=== PATIENT | male | born 1945 | race Caucasian/White ===

== ENCOUNTER 2018-06-01 11:21 | Emergency (ER) | payer MEDICARE ==
[~2018-06-01] VITALS: Ht 188 cm; Wt 97.5 kg
[~2018-06-01 11:21] MED LIST: AMLO5 PO; ASPI81EC PO; CEFP200 PO; DOCU100 PO; DOXA1; ESCI5; FEXO180 PO; HYDACE5 PO; HYDACE5325 PO; INSULANI SC; ISOMON20 PO; LEVEMIR FL100 UNIT/1 SC; LISI5 PO; METF850 PO; METO100 PO; METO50 PO; PIOG45 PO; ROSU10TA PO; SITA100T2 PO; SITA25T2
[2018-06-01 12:54] LABS: BASOPHILS ABSOLUTE AUTO 0.05 K/mm3 (0.00-0.23); BASOPHILS PERCENT AUTO 1 % (0-2); EOSINOPHILS ABSOLUTE AUTO 0.11 K/mm3 (0.00-0.68); EOSINOPHILS PERCENT AUTO 2 % (0-6); Hematocrit 41.3 % (37.0-53.0); Hemoglobin 14.4 g/dL (13.5-17.5); IMMATURE GRAN ABSOLUTE AUTO 0.02 K/mm3 (0.00-0.10); IMMATURE GRAN PERCENT AUTO 0 % (0-1); LYMPHOCYTES ABSOLUTE AUTO 1.98 K/mm3 (0.84-5.20); LYMPHOCYTES PERCENT AUTO 31 % (21-46); MONOCYTES ABSOLUTE AUTO 0.59 K/mm3 (0.16-1.47); MONOCYTES PERCENT AUTO 9 % (4-13); Mean Corpuscular HGB 30.1 pg (26.0-34.0); Mean Corpuscular HGB Conc 34.9 g/dL (31.5-36.5); Mean Corpuscular Volume 86 fL (80-100); Mean Platelet Volume 9.5 fL (9.1-12.4); NEUTROPHILS PERCENT AUTO 57 % (41-73); Platelet Count 227 K/mm3 (150-400); RDW Coefficient Variation 12.3 % (11.7-14.2); RDW Standard Deviation 39.1 fL (35.1-46.3); Red Blood Cell Count 4.79 M/mm3 (4.30-5.90); White Blood Cell Count 6.35 K/mm3 (4.00-11.30)
[2018-06-01 13:09] LABS: Alanine Aminotransfer (ALT/SGP 23 U/L (12-78); Albumin, Blood 3.3 g/dL (3.4-5.0); Albumin/Globulin Ratio 0.8 (0.8-1.8); Alk Phos 111 U/L (50-136); Anion Gap 9 mmol/L (6-16); Aspartate Aminotrans (AST/SGOT 16 U/L (12-37); Bilirubin, Total 0.8 mg/dL (0.1-1.0); Blood Urea Nitrogen 8 mg/dL (8-24); Bun/Creatinine Ratio 10.9 (12.0-20.0); CO2, Blood 25 mmol/L (21-32); Calcium, Blood 9.1 mg/dL (8.5-10.1); Chloride, Blood 101 mmol/L (98-108); Creatinine, Blood 0.73 mg/dL (0.60-1.20); Globulin, Blood 4.1 g/dL (2.2-4.0); Glomerular Filtration Rate >60 (60-); Glucose, Blood 336 mg/dL (70-99); Potassium, Blood 4.1 mmol/L (3.5-5.5); Sodium, Blood 135 mmol/L (136-145); Total Protein, Blood 7.4 g/dL (6.4-8.2)
[2018-06-01] MEDS ORDERED: METO100ER PO (13:12)
[2018-06-01] MEDS ORDERED: GABA300 PO (13:13)
[2018-06-01] MEDS ORDERED: LISI5 PO (13:13)
[2018-06-01] MEDS ORDERED: ESCI10 PO (13:14)
[2018-06-01] MEDS ORDERED: ALLEGRA ALLERG180 MG (13:14)
[2018-06-01] MEDS ORDERED: LIRA0.6P (13:32)
[2018-06-01] MEDS ORDERED: CEPH500 PO (13:57)
== END 2018-06-01 14:27 | disposition home or self-care (01) ==
LOC: ER 11:21
PROVIDERS: Physician Assistant
DX: L03.116 Cellulitis of left lower limb (principal); Z79.899 Other long term (current) drug therapy; Z79.84 Long term (current) use of oral hypoglycemic drugs; Z79.4 Long term (current) use of insulin; E11.9 Type 2 diabetes mellitus without complications; Z87.891 Personal history of nicotine dependence
CPT/HCPCS: 73630; 80053; 85025; 85651; 86141; 99283-25

== ENCOUNTER → 2018-10-23 | Outpatient (CLI) | payer MEDICARE ==
[~2018-10-23] MED LIST changes: +ALLEGRA ALLERG180 MG; +Aspir 8181 MG PO; +CEPH500 PO; +Crestor20 MG PO; +ESCI10 PO; +GABA300 PO; +HYDR1TAB94 PO; +INSDET100 SC; +LIRA0.6P; +LIRA0.6P SC; +LISI20 PO; +METO100ER PO; +PROM25 PO
== END | disposition home or self-care (01) ==
LOC: LAB SHORT 07:30 → PLD 07:30
DX: C44.329 Squamous cell carcinoma of skin of other parts of face (principal)
CPT/HCPCS: 88173

== ENCOUNTER 2018-11-08 10:39 | Day surgery (SDC) | payer MEDICARE ==
[~2018-11-08] VITALS: Ht 188 cm; Wt 99.8 kg
--- NOTE | 2018-11-08 15:57 | NUR ---
11/08/[address] AND FAMILY AT PTS BEDSIDE. DENIES P[AIN AND DENIES NAUSEA AT THIS TIME
== END 2018-11-08 16:50 | disposition home or self-care (01) ==
LOC: ORSCSDS 10:39
PROVIDERS: Otolaryngology
PROC: 0CT90ZZ Resection of Left Parotid Gland, Open Approach (ICD-10-PCS; principal; 2018-11-08 12:00)
DX: C07 Malignant neoplasm of parotid gland (principal); I10 Essential (primary) hypertension; J44.9 Chronic obstructive pulmonary disease, unspecified; K21.9 Gastro-esophageal reflux disease without esophagitis; Z87.891 Personal history of nicotine dependence; E11.9 Type 2 diabetes mellitus without complications; Z79.4 Long term (current) use of insulin; Z79.899 Other long term (current) drug therapy
CPT/HCPCS: 82947; 88307; J0171; J0330; J1100; J2250; J2370; J2405; J3010; J7120

== ENCOUNTER → 2019-01-23 | Outpatient (CLI) | payer MEDICARE | END | disposition home or self-care (01) | LOC: PLD 08:13 → LAB SHORT 08:13 | DX: D04.61 Carcinoma in situ of skin of right upper limb, including shoulder (principal); L57.0 Actinic keratosis | CPT/HCPCS: 88305 ==

== ENCOUNTER → 2020-06-10 | Outpatient (CLI) | payer MEDICARE | END | disposition home or self-care (01) | LOC: LAB SHORT 11:47 → PLD 11:47 | DX: D04.61 Carcinoma in situ of skin of right upper limb, including shoulder (principal) | CPT/HCPCS: 88305 ==

== ENCOUNTER → 2020-07-26 | Outpatient (CLI) | payer MEDICARE | END | disposition home or self-care (01) | LOC: LAB SHORT 07:51 → PLD 07:51 | DX: D04.61 Carcinoma in situ of skin of right upper limb, including shoulder (principal); D22.61 Melanocytic nevi of right upper limb, including shoulder | CPT/HCPCS: 88305 ==

== ENCOUNTER 2020-08-26 19:46 | Emergency (ER) | payer MEDICARE ==
[~2020-08-26] VITALS: Ht 188 cm; Wt 97.5 kg
== END 2020-08-26 22:32 | disposition home or self-care (01) ==
LOC: ER 19:46
DX: R60.0 Localized edema (principal); E11.40 Type 2 diabetes mellitus with diabetic neuropathy, unspecified; Z79.899 Other long term (current) drug therapy; Z79.82 Long term (current) use of aspirin; Z79.4 Long term (current) use of insulin; Z87.891 Personal history of nicotine dependence
CPT/HCPCS: 93971; 99283-25